=== PATIENT | male | born 1965 | race Caucasian/White ===

== ENCOUNTER 2016-10-06 07:33 | Day surgery (SDC) | payer OTHER ==
[2016-10-04 11:34] VITALS: BMI 38.0
[~2016-10-06 07:33] MED LIST: LACTATED RINGERS 1,000 ML IV SCH; LIDOCAINE 1% 20 ML VIAL (10MG/ML) FOR IV START INTRADERMA PRN
[2016-10-06 07:55] VITALS: RESP 16; TEMP 98.1
[2016-10-06] MEDS ORDERED: fentaNYL (PF) 50 MCG/ML 2 ML AMP ONE (08:21)
[2016-10-06] MEDS ORDERED: PROPOFOL 10 MG/ML 20 ML VIAL IV ONE (08:21)
[2016-10-06] MEDS ORDERED: MIDAZOLAM 2 MG/2 ML VIAL ONE (08:21)
--- NOTE | 2016-10-06 08:27 | P.GSHP ---
History of Present Illness H&P Date: 10/06/16 Chief Complaint: Screening colonoscopy This is a 51-year-old male referred from Dr. Ward. Patient presents today for screening colonoscopy. Past Medical History Past Medical History: GERD/Reflux, Musculoskeletal Disorder, Osteoarthritis (OA) , Sleep Apnea/CPAP/BIPAP Additional Past Medical History / Comment(s): DDD, uses CPAP History of Any Multi-Drug Resistant Organisms: None Reported Past Surgical History: Orthopedic Surgery Additional Past Surgical History / Comment(s): pilonidal cyst removed, carpal tunnel right Past Anesthesia/Blood Transfusion Reactions: No Reported Reaction Past Psychological History: No Psychological Hx Reported Smoking Status: Former smoker Past Alcohol Use History: None Reported Additional Past Alcohol Use History / Comment(s): quit smoking 2013, smoked for 20 yrs. Past Drug Use History: None Reported - Past Family History Mother Family Medical History: No Reported History Medications and Allergies Home Medications Medication Instructions Recorded Confirmed Type Naproxen 500 mg PO Q12HR PRN 10/04/16 10/04/16 History Ranitidine HCl [Zantac] 150 mg PO BID PRN 10/04/16 10/06/16 History Allergies Allergy/AdvReac Type Severity Reaction Status Date / Time No Known Allergies Allergy Verified 10/04/16 10:49 Surgical - Exam Vital Signs Temp Pulse Resp BP Pulse Ox 98.1 F 58 L 16 110/56 94 L 10/06/16 07:54 10/06/16 07:54 10/06/16 07:54 10/06/16 07:54 10/06/16 07:54 - General well developed, no distress - Eyes PERRL - ENT normal pinna - Neck no masses - Respiratory normal expansion - Cardiovascular Rhythm: regular - Abdomen Abdomen: soft, non tender Assessment and Plan Plan: We'll perform screening colonoscopy.
--- NOTE | 2016-10-06 08:38 | P.OP ---
Date of Procedure: 10/06/16 Preoperative Diagnosis: Screening colonoscopy Postoperative Diagnosis: Diverticulosis Procedure(s) Performed: Colonoscopy Anesthesia: MAC Surgeon: Delroy Hernandez Pathology: none sent Condition: stable Disposition: PACU Description of Procedure: The patient's placed on the endoscopy table in the lateral position. He received IV sedation. Digital rectal exam was performed which revealed no abnormalities. The prostate was symmetric without nodules. The flexible colonoscope was then placed patient anus and passed throughout the entire colon. The ileocecal valve was visualized. Cecum, ascending, transverse colon appeared normal. In the descending and sigmoid colon there was mild diverticular changes. There is no evidence of diverticulitis. Scope was then brought back the rectum and this appeared normal. Scope was withdrawn for patient.
[2016-10-06 09:06] VITALS: BP 120/71; PULSE 59
== END 2016-10-06 09:15 | disposition home or self-care (01) ==
LOC: ORWHC2ENDO 07:33
PROVIDERS: ATTEND Surgery
DX: Z12.11 Encounter for screening for malignant neoplasm of colon (principal); K57.30 Diverticulosis of large intestine without perforation or abscess without bleeding; K21.9 Gastro-esophageal reflux disease without esophagitis; M19.90 Unspecified osteoarthritis, unspecified site; G47.33 Obstructive sleep apnea (adult) (pediatric); Z79.1 Long term (current) use of non-steroidal anti-inflammatories (NSAID); Z79.899 Other long term (current) drug therapy; Z87.891 Personal history of nicotine dependence
CPT/HCPCS: J2250; J3010; J2704; G0121

== ENCOUNTER → 2017-06-29 | Outpatient (CLI) | payer OTHER ==
--- NOTE | 2017-06-29 11:49 | XR ---
Lumbar spine HISTORY: Low back pain, strain And radiculopathy 3 views of the lumbar spine correlated prior exam 12/07/2011 There is a slight spinal curvature. No interval change evident. Bone mineralization, disc spaces and alignment are stable. Mild loss of disc height at L5-S1. Stable spondylosis. Sclerosis present in the posterior elements lumbar spine. IMPRESSION: Degenerative disc disease. Facet arthropathy. Slight spinal curvature.
== END | disposition home or self-care (01) ==
LOC: RADXRMAIN 09:53
PROVIDERS: ATTEND Emergency Medicine
DX: M51.36 Other intervertebral disc degeneration, lumbar region (principal); M46.96 Unspecified inflammatory spondylopathy, lumbar region
CPT/HCPCS: 72100